=== PATIENT | male | born 1990 | race Hispanic/Latino ===

== ENCOUNTER 2022-07-16 20:34 | Observation (INO) | payer SELFPAY ==
[2022-07-16] MEDS ORDERED: Ondansetron ODT 4 MG TAB PO PRN (22:42)
[2022-07-16] MEDS ORDERED: Ondansetron PF 4 MG/2 ML Vial IVP PRN (22:42)
[2022-07-16] MEDS ORDERED: Acetaminophen 650 MG Suppository PR PRN (22:42)
[2022-07-16 23:44] VITALS: BMI 25.7
[2022-07-16] MEDS: Sodium Chloride 0.9% 1,000 ML IV SCH (23:53)
[2022-07-17 00:18] LABS: Lactic Acid 2.4 mmol/L (0.5-2.2)
[2022-07-17] MEDS: Acetaminophen 325 MG TAB PO PRN ×2 (03:23→10:50)
[2022-07-17 05:01] LABS: Anion Gap 11 mmol/L (10-20); BUN (Urea Nitrogen) 13 mg/dL (8.9-20.6); Calc. Creatinine Clearance 98 mL/min (70-130); Calcium 8.5 mg/dL (7.8-10.44); Carbon Dioxide 21 mmol/L (22-29); Chloride 110 mmol/L (98-107); Estimated GFR 84; Glucose 125 mg/dL (70-105); Potassium 4.4 mmol/L (3.5-5.1); Sodium 138 mmol/L (136-145)
[2022-07-17 05:16] LABS: Mean Corpuscular HGB CONC 34.1 g/dL (32.0-36.0); Mean Corpuscular Hemoglobin 32.1 pg (27.0-31.0); Mean Corpuscular Volume 94.4 fL (78.0-98.0); Platelet Count 307 thou/uL (130-400); Red Blood Cell (RBC) Count 4.34 mill/uL (4.70-6.10); White Blood Cell (WBC) Count 24.2 thou/uL (4.8-10.8)
[2022-07-17 05:17] LABS: Band 15 % (5-11); Lymphocytes 1 % (21-51); MDiff Complete? YES; Monocytes 3 % (0-10); Neutrophil 81 % (42-75); Toxic Granulation SLIGHT
[2022-07-17] MEDS ORDERED: Cetirizine HCl 10 MG TAB PO ONE (09:58)
[2022-07-17] MEDS ORDERED: methylPREDNISolone Sod Succ 40 MG VIAL IVP SCH (10:00)
[2022-07-17 10:27] LABS: Lactic Acid 2.7 mmol/L (0.5-2.2)
[2022-07-17] MEDS ORDERED: Loratadine 10 MG TAB PO SCH (10:30)
[2022-07-17] MEDS: methylPREDNISolone Sod Succ/PF 125 MG/2 ML VIAL IVP SCH ×2 (10:44→23:43)
[2022-07-17] MEDS: Sodium Chloride 0.9% 1,000 ML IV SCH ×2 (10:49→21:09)
[2022-07-17] MEDS ORDERED: Ibuprofen 200 MG TAB PO PRN (12:00)
[2022-07-17 19:30] LABS: Lactic Acid 3.5 mmol/L (0.5-2.2)
[2022-07-18] MEDS: Sodium Chloride 0.9% 1,000 ML IV SCH (06:29)
[2022-07-18] MEDS ORDERED: Cetirizine HCl 10 MG TAB PO SCH (09:00)
[2022-07-18] MEDS ORDERED: Loratadine 10 MG TAB PO SCH (09:00)
[2022-07-18] MEDS: methylPREDNISolone Sod Succ/PF 125 MG/2 ML VIAL IVP SCH (11:32)
[2022-07-18 11:33] VITALS: BP 140/93; TEMP 97.9
== END 2022-07-18 11:41 | disposition home or self-care (01) ==
LOC: ERS 20:34 → 2SW 21:55
PROVIDERS: ADMIT Student in an Organized Health Care Education/Training Program; ATTEND Student in an Organized Health Care Education/Training Program
DX: T78.2XXA Anaphylactic shock, unspecified, initial encounter (principal); T63.441A Toxic effect of venom of bees, accidental (unintentional), initial encounter; E87.2 Acidosis; Z20.822 Contact with and (suspected) exposure to COVID-19
CPT/HCPCS: 36415; 80048; 83605; 85025; 96361; 96374; 96376; 99285; G0378; J2930; J7050; U0003; U0005